=== PATIENT | male | born 1980 ===

== ENCOUNTER 2017-05-11 12:20 | Inpatient (IN) | payer OTHER ==
[2017-05-11] MEDS ORDERED: HYDROmorphone 0.5 mg/0.5 ml ISec IVP STA (13:13)
--- NOTE | 2017-05-11 13:16 | ED PDOC ---
HPI: Back Time Seen by Provider: 05/11/17 12:40 Chief Complaint (Nursing): Back Pain Chief Complaint (Provider): Back pain History Per: Patient History/Exam Limitations: no limitations Onset/Duration Of Symptoms: Persistent, Other (4 months) Current Symptoms Are (Timing): Still Present Quality Of Discomfort: Sharp Description Of Injury (Context): Fall from 2 stories Severity: Severe Associated Symptoms: None Exacerbating Factor(s): Turning, Movement Additional Complaint(s): Pt presents with low back pain X 4 months s/p fall from 2 stories, evaluated previously and diagnosed with disc herniation. Denies new trauma, paresthesias , weakness. Taking Advil and Percocet at home without relief. Past Medical History Reviewed: Nursing Documentation, Vital Signs Vital Signs: Last Vital Signs Temp 98 F 05/11/17 12:41 Pulse 74 05/11/17 12:41 Resp 20 05/11/17 12:41 BP 130/70 05/11/17 12:41 Pulse Ox 98 05/11/17 12:41 - Medical History PMH: No Chronic Diseases - Surgical History Other surgeries: R knee surgery - Family History Family History: States: No Known Family Hx - Social History Current smoker - smoking cessation education provided: No Alcohol: None - Allergies Allergies/Adverse Reactions: Allergies Allergy/AdvReac Type Severity Reaction Status Date / Time No Known Allergies Allergy Verified 05/11/17 12:44 Review of Systems Constitutional: Negative for: Fever, Chills Cardiovascular: Negative for: Chest Pain Gastrointestinal: Negative for: Abdominal Pain Genitourinary Male: Negative for: Dysuria, Incontinence Musculoskeletal: Positive for: Back Pain. Negative for: Leg Pain Skin: Negative for: Rash, Lesions Neurological: Negative for: Weakness, Numbness Physical Exam - Reviewed Nursing Documentation Reviewed: Yes Vital Signs Reviewed: Yes - Physical Exam Appears: Positive for: Uncomfortable Head Exam: Positive for: ATRAUMATIC, NORMAL INSPECTION Skin: Positive for: Normal Color, Warm, Dry Eye Exam: Positive for: Normal appearance, EOMI, PERRL Cardiovascular/Chest: Positive for: Regular Rate, Rhythm Respiratory: Positive for: Normal Breath Sounds Gastrointestinal/Abdominal: Positive for: Normal Exam, Bowel Sounds, Soft. Negative for: Tenderness Back: Positive for: Vertebral Tenderness (Lumbar), Decreased ROM. Negative for : L CVA Tenderness, R CVA Tenderness, Muscle Spasm Extremity: Positive for: Normal ROM Neurologic/Psych: Positive for: Alert, Oriented. Negative for: Motor/Sensory Deficits - ECG Interpretation Of ECG: EKG #1: Sinus cosmo @ 53, ST elevation V2-V5, 13:[address] Seay, pt without CP/SOB, comfortably appearing, no PMHx, no family history of early [place], states nothing to do. EKG #2: Sinus cosmo @ 55, J point elevation. O2 Sat by Pulse Oximetry: 98 Medical Decision Making Medical Decision Making: Time: 13:11 Initial Plan: - Type and Screen - EKG - CMP - CBC - Partial - Prothrombin Time - Chest X-Ray - Dilaudid 0.5 mg IVP - Urinalysis Disposition - Clinical Impression Clinical Impression: Intractable low back pain - Patient ED Disposition Is Patient to be Admitted: Yes - Disposition Disposition Time: 13:17 Condition: STABLE Forms: [employer] (Hungarian) - Pt Status Changed To: Hospital Disposition Of: Inpatient - Admit Certification Admit to Inpatient:: After my assessment, the patient will require hospitalization for at least two midnights. This is because of the severity of symptoms shown, intensity of services needed, and/or the medical risk in this patient being treated as an outpatient. - POA Present On Arrival: Falls Or Trauma
[2017-05-11] MEDS ORDERED: HYDROmorphone 0.5 mg/0.5 ml ISec ONE (13:30)
[2017-05-11 13:52] LABS: BASO % 0.6 % (0.0-2.0); EOS # 0.1 K/uL (0.0-0.7); MEAN CELL VOLUME 88.5 fl (80.0-94.0); MEAN CORPUSCULAR HEMOGLOBIN 28.7 pg (27.0-31.0); MEAN CORPUSCULAR HGB CONC 32.4 g/dL (33.0-37.0); MEAN PLATELET VOLUME 9.4 fl (7.2-11.7); MONO # 0.8 K/uL (0.0-0.8); MONO % 10.6 % (0.0-10.0); NEUT # 3.5 K/uL (1.8-7.0); NEUT % 46.8 % (50.0-75.0); WHITE BLOOD COUNT 7.6 K/uL (4.8-10.8)
--- NOTE | 2017-05-11 14:03 | RAD ---
HISTORY: Medical clearance COMPARISON: No prior. TECHNIQUE: Chest PA and lateral FINDINGS: LUNGS: No active pulmonary disease. PLEURA: No significant pleural effusion identified. No pneumothorax apparent. CARDIOVASCULAR: Normal. OSSEOUS STRUCTURES: No significant abnormalities. VISUALIZED UPPER ABDOMEN: Normal. OTHER FINDINGS: None. IMPRESSION: No active disease.
[2017-05-11 14:06] LABS: ALB/GLOB RATIO 1.4 (1.0-2.1); ALKALINE PHOSPHATASE 84 U/L (38-126); ALT/SGPT 52 U/L (21-72); AST/SGOT 45 U/L (17-59); BILIRUBIN,TOTAL 0.5 mg/dl (0.2-1.3); BLOOD UREA NITROGEN 19 mg/dl (9-20); CALCIUM 8.9 mg/dL (8.4-10.2); CARBON DIOXIDE 28 mmol/L (22-30); CHLORIDE 105 mmol/L (98-107); GFR AFRICAN-AMERICAN > 60; GLUCOSE,RANDOM 93 mg/dL (75-110); POTASSIUM 4.1 MMOL/L (3.6-5.0); SODIUM 141 mmol/l (132-148); TOTAL PROTEIN 7.2 G/DL (6.3-8.2)
[2017-05-11 14:14] LABS: PARTIAL THROMBOPLASTIN TIME 31.6 Seconds (25.6-37.1)
[2017-05-11 15:16] LABS: RBC URINE 2 /hpf (0-3); URINE BILIRUBIN NEGATIVE (NEGATIVE); URINE BLOOD NEGATIVE (NEGATIVE); URINE COLOR YELLOW (YELLOW); URINE GLUCOSE (UA) NEG (Normal); URINE KETONE NEGATIVE (NEGATIVE); URINE LEUKOCYTE ESTERASE NEG Leu/uL (Negative); URINE PROTEIN NEGATIVE (NEGATIVE); URINE UROBILINOGEN 0.2-1.0 mg/dL (0.2-1.0); WBC URINE 2 /hpf (0-5)
[2017-05-12] MEDS ORDERED: Dextrose 5%/Lactated Ringer's 1,000 ML IV SCH (06:00)
[2017-05-12] MEDS ORDERED: Propofol 10 mg/ml Inj (20 ML) ONE (08:33)
[2017-05-12] MEDS ORDERED: Midazolam 2 MG/2 ML VIAL ONE (08:34)
[2017-05-12] MEDS ORDERED: Lidocaine 4% (Laryng-O-Jet) Kit MM ONE (08:34)
[2017-05-12] MEDS ORDERED: Rocuronium 10 mg/ml (5 ml) ONE (08:34)
--- NOTE | 2017-05-12 08:51 | CP.PCM.HP ---
History of Present Illness - History of Present Illness History of Present Illness: This is a 37 y/o male with no significant medical hx was admitted for intractable lower back pain which started in December after a fall at work. Claims that he fell about 1 1/2 floor and since then had intractable back pain. Conservative measures were started but to no avail. His pain persisted despite pain medications and phys therapy. MRI showed herniated discs lumbar area L5S1 Present on Admission - Present on Admission Any Indicators Present on Admission: No History of DVT/PE: No History of Uncontrolled Diabetes: No Urinary Catheter: No Decubitus Ulcer Present: No Past Patient History - Past Medical History & Family History Past Medical History?: No - Past Social History Smoking Status: Never Smoked - CARDIAC Hx Cardiac Disorders: No - PULMONARY Hx Respiratory Disorders: No - NEUROLOGICAL Hx Neurological Disorder: No - HEENT Hx HEENT Problems: No - RENAL Hx Chronic Kidney Disease: No - ENDOCRINE/METABOLIC Hx Endocrine Disorders: No - HEMATOLOGICAL/ONCOLOGICAL Hx Blood Disorders: No Hx AIDS: No Hx Human Immunodeficiency Virus (HIV): No - INTEGUMENTARY Hx Dermatological Problems: No - MUSCULOSKELETAL/RHEUMATOLOGICAL Hx Musculoskeletal Disorders: No Hx Falls: No - GASTROINTESTINAL Hx Gastrointestinal Disorders: No - GENITOURINARY/GYNECOLOGICAL Hx Genitourinary Disorders: No - PSYCHIATRIC Hx Psychophysiologic Disorder: No Hx Substance Use: No - SURGICAL HISTORY Hx Surgeries: Yes Other/Comment: right knee surgery - ANESTHESIA Hx Anesthesia: Yes Hx Anesthesia Reactions: No Hx Malignant Hyperthermia: No Has any member of the family had a problem w/ anesthesia?: No Meds Allergies/Adverse Reactions: Allergies Allergy/AdvReac Type Severity Reaction Status Date / Time No Known Allergies Allergy Verified 05/11/17 12:44 Physical Exam - Head Exam Head Exam: NORMAL INSPECTION - Eye Exam Eye Exam: Normal appearance - ENT Exam ENT Exam: Mucous Membranes Moist - Respiratory Exam Respiratory Exam: Clear to Auscultation Bilateral - Cardiovascular Exam Cardiovascular Exam: REGULAR RHYTHM - Neurological Exam Neurological exam: CN II-XII Intact, Oriented x3 - Psychiatric Exam Psychiatric exam: Normal Mood Results - Vital Signs Recent Vital Signs: Last Vital Signs Temp 97.8 F 05/12/17 08:08 Pulse 52 L 05/12/17 08:08 Resp 20 05/12/17 08:08 BP 105/56 L 05/12/17 08:08 Pulse Ox 97 05/12/17 08:08 - Labs Result Diagrams: 05/11/17 13:45 05/11/17 13:45 Labs: Laboratory Results - last 24 hr 05/11/17 05/11/17 05/11/17 13:45 13:45 13:45 WBC 7.6 RBC 4.97 Hgb 14.3 Hct 44.0 MCV 88.5 MCH 28.7 MCHC 32.4 L RDW 14.0 Plt Count 142 MPV 9.4 Neut % (Auto) 46.8 L Lymph % (Auto) 40.0 [place] % (Auto) 10.6 H Eos % (Auto) 2.0 Baso % (Auto) 0.6 Neut # 3.5 Lymph # 3.0 [place] # 0.8 Eos # 0.1 Baso # 0.0 PT 11.6 INR 1.0 APTT 31.6 Sodium 141 Potassium 4.1 Chloride 105 Carbon Dioxide 28 Anion Gap 12 BUN 19 Creatinine 1.0 Est GFR ( Amer) > 60 Est GFR (Non-Af Amer) > 60 Random Glucose 93 Calcium 8.9 Total Bilirubin 0.5 AST 45 ALT 52 Alkaline Phosphatase 84 Total Protein 7.2 Albumin 4.2 Globulin 2.9 Albumin/Globulin Ratio 1.4 Urine Color Urine Clarity Urine pH Ur Specific [place] Urine Protein Urine Glucose (UA) Urine Ketones Urine Blood Urine Nitrate Urine Bilirubin Urine Urobilinogen Ur Leukocyte Esterase Urine RBC (Auto) Urine Microscopic WBC Blood Type Blood Type Confirm Antibody Screen BBK History Checked 05/11/17 05/11/17 05/11/17 13:45 15:00 15:05 WBC RBC Hgb Hct MCV MCH MCHC RDW Plt Count MPV Neut % (Auto) Lymph % (Auto) [place] % (Auto) Eos % (Auto) Baso % (Auto) Neut # Lymph # [place] # Eos # Baso # PT INR APTT Sodium Potassium Chloride Carbon Dioxide Anion Gap BUN Creatinine Est GFR ( Amer) Est GFR (Non-Af Amer) Random Glucose Calcium Total Bilirubin AST ALT Alkaline Phosphatase Total Protein Albumin Globulin Albumin/Globulin Ratio Urine Color Yellow Urine Clarity Clear Urine pH 6.0 Ur Specific [place] 1.019 Urine Protein Negative Urine Glucose (UA) Neg Urine Ketones Negative Urine Blood Negative Urine Nitrate Negative Urine Bilirubin Negative Urine Urobilinogen 0.2-1.0 Ur Leukocyte Esterase Neg Urine RBC (Auto) 2 Urine Microscopic WBC 2 Blood Type O POSITIVE Blood Type Confirm O POSITIVE Antibody Screen Negative BBK History Checked No verified bt Assessment & Plan (1) Herniated lumbar disc without myelopathy Status: Acute (2) Intractable low back pain Status: Acute - Assessment and Plan (Free Text) Plan: KEEP npo PAIN MEDS iv FLUIDS LABS REVIEWED MEDICALLY STABLE FOR SURGERY.
[2017-05-12] MEDS ORDERED: ceFAZolin IV 1 gm in Dextrose 2 GM/100 ML BAG IVPB ONE (08:55)
[2017-05-12] MEDS ORDERED: Lidocaine 2% w Epi 1:100,000 Inj IJ ONE (08:55)
[2017-05-12] MEDS ORDERED: Bupivacaine HCl 0.5% PF (30 ml) Inj ONE (08:55)
[2017-05-12] MEDS ORDERED: Thrombin Topical 5,000 IU Spray Kit ONE (08:56)
[2017-05-12] MEDS ORDERED: Absorbable Gelatin Sponge Size 100 ONE (08:56)
[2017-05-12] MEDS ORDERED: Neostigmine Methylsulfate 3mg/3ml Syringe IV ONE (10:44)
[2017-05-12] MEDS ORDERED: Lactated Ringer's 1,000 ML IV ONE (10:55)
[2017-05-12] MEDS ORDERED: Lactated Ringer's 500 ML IV ONE (10:57)
[2017-05-12] MEDS ORDERED: Dexamethasone 4 mg/1 ml IVP PRN (11:15)
[2017-05-12] MEDS: HYDROmorphone 0.5 mg/0.5 ml ISec IVP PRN ×2 (11:47→12:07)
--- NOTE | 2017-05-12 12:20 | CP.PCM.CON ---
History of Present Illness - History of Present Illness History of Present Illness: Dr. Allison asked to see this 37 yo male admitted with intractable LBP radiating LLE with paresthesias and weakness,increasing difficulty ambulating,ongoing symptoms since W[place],no relief with conservative management and medication,unable to perform ADL's,images reviewed showing Lumbar Spondylosis,HNP L5-S1 with severe canal and foraminal stenosis,discussed surgical and non surgical options, due to worsening symptoms pt agree's to have a decompressive laminectomy,denies pelvic paresthesias ,B/B incontinance. Review of Systems - Review of Systems Systems not reviewed;Unavailable: Acuity of Condition - Musculoskeletal Musculoskeletal: Muscle Weakness, Radiating Pain into Limb, Tingling - Neurological Neurological: As Per HPI Past Patient History - Infectious Disease Hx of Infectious Diseases: None - Tetanus Immunizations Tetanus Immunization: Unknown - Past Medical History & Family History Past Medical History?: No - Past Social History Smoking Status: Never Smoked Chewing Tobacco Use: No Cigar Use: No - CARDIAC Hx Cardiac Disorders: No - PULMONARY Hx Respiratory Disorders: No - NEUROLOGICAL Hx Neurological Disorder: No - HEENT Hx HEENT Problems: No - RENAL Hx Chronic Kidney Disease: No - ENDOCRINE/METABOLIC Hx Endocrine Disorders: No - HEMATOLOGICAL/ONCOLOGICAL Hx Blood Disorders: No Hx AIDS: No Hx Human Immunodeficiency Virus (HIV): No - INTEGUMENTARY Hx Dermatological Problems: No - MUSCULOSKELETAL/RHEUMATOLOGICAL Hx Musculoskeletal Disorders: No Hx Falls: No - GASTROINTESTINAL Hx Gastrointestinal Disorders: No - GENITOURINARY/GYNECOLOGICAL Hx Genitourinary Disorders: No - PSYCHIATRIC Hx Psychophysiologic Disorder: No Hx Substance Use: No - SURGICAL HISTORY Hx Surgeries: Yes Other/Comment: right knee surgery - ANESTHESIA Hx Anesthesia: Yes Hx Anesthesia Reactions: No Hx Malignant Hyperthermia: No Has any member of the family had a problem w/ anesthesia?: No Meds Allergies/Adverse Reactions: Allergies Allergy/AdvReac Type Severity Reaction Status Date / Time No Known Allergies Allergy Verified 05/11/17 12:44 - Medications Medications: Current Medications Dexamethasone (Decadron Inj) 4 mg IVP ONCE PRN PRN Reason: Nausea/Vomiting Stop: 05/12/17 13:16 Hydromorphone HCl (Dilaudid) 0.5 mg IVP Q5M PRN PRN Reason: Pain, severe (8-10) Stop: 05/12/17 13:16 Last Admin: 05/12/17 12:07 Dose: 0.5 mg Dextrose/Lactated Ringer's (Dextrose 5%/Lactated Ringer's) 1,000 mls @ 80 mls/ hr IV .[id number] TRACIE Stop: 05/13/17 17:35 Last Admin: 05/12/17 06:14 Dose: 80 mls/hr Ketorolac Tromethamine (Toradol) 30 mg IVP ONCE PRN PRN Reason: Pain, moderate (4-7) Stop: 05/12/17 13:16 Metoclopramide HCl (Reglan) 10 mg IVP ONCE PRN PRN Reason: Nausea/Vomiting Stop: 05/12/17 13:16 Physical Exam - Constitutional Appears: Well, Non-toxic, No Acute Distress - Head Exam Head Exam: ATRAUMATIC, NORMAL INSPECTION, NORMOCEPHALIC - Eye Exam Eye Exam: EOMI, Normal appearance, PERRL Pupil Exam: NORMAL ACCOMODATION - ENT Exam ENT Exam: Mucous Membranes Moist - Neck Exam Neck exam: Positive for: Normal Inspection - Respiratory Exam Respiratory Exam: Clear to Auscultation Bilateral - Cardiovascular Exam Cardiovascular Exam: REGULAR RHYTHM, +S1, +S2 - GI/Abdominal Exam GI & Abdominal Exam: Normal Bowel Sounds, Soft - Rectal Exam Rectal Exam: Deferred - Extremities Exam Extremities exam: Positive for: pedal pulses present - Back Exam Back exam: paraspinal tenderness, vertebral tenderness - Neurological Exam Neurological exam: Alert, Oriented x3 Additional comments: VU x 4 antigravity with LLE weakness 4/5 and paresthesias,Left SLR 40 degree's, + 2 DTR's,neg babinski - Psychiatric Exam Psychiatric exam: Normal Affect, Normal Mood - Skin Skin Exam: Dry, Intact, Normal Color Results - Vital Signs Recent Vital Signs: Last Vital Signs Temp 96.8 F L 05/12/17 12:00 Pulse 54 L 05/12/17 12:00 Resp 18 05/12/17 12:00 BP 115/64 05/12/17 12:00 Pulse Ox 100 05/12/17 12:00 - Labs Result Diagrams: 05/11/17 13:45 05/11/17 13:45 Labs: Laboratory Results - last 24 hr 05/11/17 05/11/17 05/11/17 13:45 13:45 13:45 WBC 7.6 RBC 4.97 Hgb 14.3 Hct 44.0 MCV 88.5 MCH 28.7 MCHC 32.4 L RDW 14.0 Plt Count 142 MPV 9.4 Neut % (Auto) 46.8 L Lymph % (Auto) 40.0 [place] % (Auto) 10.6 H Eos % (Auto) 2.0 Baso % (Auto) 0.6 Neut # 3.5 Lymph # 3.0 [place] # 0.8 Eos # 0.1 Baso # 0.0 PT 11.6 INR 1.0 APTT 31.6 Sodium 141 Potassium 4.1 Chloride 105 Carbon Dioxide 28 Anion Gap 12 BUN 19 Creatinine 1.0 Est GFR ( Amer) > 60 Est GFR (Non-Af Amer) > 60 Random Glucose 93 Calcium 8.9 Total Bilirubin 0.5 AST 45 ALT 52 Alkaline Phosphatase 84 Total Protein 7.2 Albumin 4.2 Globulin 2.9 Albumin/Globulin Ratio 1.4 Urine Color Urine Clarity Urine pH Ur Specific [place] Urine Protein Urine Glucose (UA) Urine Ketones Urine Blood Urine Nitrate Urine Bilirubin Urine Urobilinogen Ur Leukocyte Esterase Urine RBC (Auto) Urine Microscopic WBC Blood Type Blood Type Confirm Antibody Screen BBK History Checked 05/11/17 05/11/17 05/11/17 13:45 15:00 15:05 WBC RBC Hgb Hct MCV MCH MCHC RDW Plt Count MPV Neut % (Auto) Lymph % (Auto) [place] % (Auto) Eos % (Auto) Baso % (Auto) Neut # Lymph # [place] # Eos # Baso # PT INR APTT Sodium Potassium Chloride Carbon Dioxide Anion Gap BUN Creatinine Est GFR ( Amer) Est GFR (Non-Af Amer) Random Glucose Calcium Total Bilirubin AST ALT Alkaline Phosphatase Total Protein Albumin Globulin Albumin/Globulin Ratio Urine Color Yellow Urine Clarity Clear Urine pH 6.0 Ur Specific [place] 1.019 Urine Protein Negative Urine Glucose (UA) Neg Urine Ketones Negative Urine Blood Negative Urine Nitrate Negative Urine Bilirubin Negative Urine Urobilinogen 0.2-1.0 Ur Leukocyte Esterase Neg Urine RBC (Auto) 2 Urine Microscopic WBC 2 Blood Type O POSITIVE Blood Type Confirm O POSITIVE Antibody Screen Negative BBK History Checked No verified bt Assessment & Plan - Assessment and Plan (Free Text) Assessment: 37 yo male with Left L5-S1 HNP,Lumbar Spondylosis and LLE radiculapathy Plan: due to worsenig symptoms,increasing inability to perform ADL's,failed conservative management,pt agree's to have Left Decompressive Laminectomy L5-S1, risks and benefits of surgery d/w pt,expressed understanding and wishes to proceed.
[2017-05-12] MEDS ORDERED: Oxycodone/Acetaminophen 5/325 mg Tab PO PRN (12:27)
[2017-05-12] MEDS ORDERED: Lactated Ringer's 1,000 ML IV SCH (12:30)
--- NOTE | 2017-05-12 12:30 | RAD ---
PROCEDURE: Intraoperative Fluoroscopy. HISTORY: LUMBAR LAMINECTOMY FINDINGS: Fluoroscopic assistance was provided for lumbar laminectomy. Please seconds of fluoro time was utilized with a cumulative dose of 0.74 mGy.
[2017-05-12] MEDS ORDERED: Influenza Vaccine 18yr & older 0.5 ML/45 MCG SYR IM ONE (16:00)
--- NOTE | 2017-05-12 16:10 | CP.PCM.PN ---
Subjective - Date & Time of Evaluation Date of Evaluation: 05/12/17 Time of Evaluation: 16:08 - Subjective Subjective: POD# 0: s/p L5-S1 decompressive laminectomy S:Patient seen and evaluated postoperatively. Pain is well controlled, has headache only. Would like to avoid percocet/morphine. He has rash on anterior left thigh, on lateral aspect, states it is secondary to allergy to metal. He puts his keys in his pocket and then has rash. Uses cream from [place] 'trident' . Unsure what generic medication is. O:Patient is lying comfortably in bed, no acute distress. Breathing is unlabored , normal breathing pattern. Abdomen is soft and nondistended, nontender. Extermities Good muscular tone, Lateral left leg anterior thigh: 2x3cm area of erythema with scaling, excoration. A/P: 37 year old male POD# 0: s/p L5-S1 decompressive laminectomy -pain control: tylenol/toradol -regular diet -PT evaluation -scds for now, lovenox in am Objective - Vital Signs/Intake and Output Vital Signs (last 24 hours): Temp Pulse Resp BP Pulse Ox 98.1 F 98 H 20 114/57 L 98 05/12/17 14:42 05/12/17 14:42 05/12/17 14:42 05/12/17 14:42 05/12/17 14:42 Intake and Output: 05/12/17 05/12/17 06:59 18:59 Intake Total 1820 Balance 1820 - Medications Medications: Current Medications Docusate Sodium (Colace) 100 mg PO BID TRACIE Dextrose/Lactated Ringer's (Dextrose 5%/Lactated Ringer's) 1,000 mls @ 80 mls/ hr IV .[id number] [facility] Stop: 05/13/17 17:35 Last Admin: 05/12/17 06:14 Dose: 80 mls/hr Lactated Ringer's (Lactated Ringer's) 1,000 mls @ 75 mls/hr IV .[id number] [facility] Stop: 05/13/17 10:00 Cefazolin Sodium/Dextrose (Ancef Iv 1 Gm Duplex) 1 gm in 50 mls @ 50 mls/hr IVPB Q8 TRACIE PRN Reason: Protocol Morphine Sulfate (Morphine) 2 mg IVP Q4 PRN PRN Reason: Pain, severe (8-10) Ondansetron HCl (Zofran Inj) 4 mg IVP Q6 PRN PRN Reason: Nausea/Vomiting Oxycodone/Acetaminophen (Percocet 5/325 Mg Tab) 2 tab PO Q4 PRN PRN Reason: Pain, moderate (4-7) Stop: 05/15/17 12:28 - Labs Labs: 05/11/17 13:45 05/11/17 13:45 PT 11.6 Seconds (9.8-13.1) 05/11/17 13:45 INR 1.0 (0.9-1.2) 05/11/17 13:45 APTT 31.6 Seconds (25.6-37.1) 05/11/17 13:45
[2017-05-12] MEDS: ceFAZolin IV 1 gm in Dextrose 1 GM/50 ML BAG IVPB SCH (17:04)
--- NOTE | 2017-05-12 23:22 | OP ---
PROCEDURE DATE: 05/12/2017 PREOPERATIVE DIAGNOSIS: Herniated lumbar disc at L5-S1. POSTOPERATIVE DIAGNOSIS: Herniated lumbar disc at L5-S1. PROCEDURE: Left L5-S1 hemilaminotomy, medial facetectomy, decompression. Microscope has been used, fluoroscopy has been used. SURGEON: Kieran Allison MD INJECTOR ASSEMBLER: Zuri Michel, physician nurses medical assistants phlebotomists. Zuri Michel stayed throughout the case from the beginning to the end and helped me perform the surgery. DESCRIPTION OF PROCEDURE: The patient was brought to the operating room, anesthetized with general endotracheal anesthesia, placed in a prone position on the Jacky table. Care was taken to protect all the pressure points. Back of the lumbar area thoroughly prepped and draped in same sterile manner after marking of the skin incision for an L5-S1 laminectomy . After prepping and draping the area, the skin has been incised. Bleeding skins had been controlled with bipolar gear repairer. By using a Bovie gear repairer, paraspinal muscles have been detached, attachments of spinous process and lamina of L5-S1 on the left side. A Sharon retractor has been applied to alter the facet joint of L5-S1. Fluoroscopy has been used in order to confirm the level. Under microscopic magnification, the lamina of L5-S1 and medial part of the L5-S1 have been drilled. Drilling was continued until the top and bottom of the ligamentum flavum was seen. Drilling was also continued on the medial part of the facets until the turn of ligamentum flavum has been seen. Once this has been done, thinned out the lamina; medial part of the facets and ligamentum flavum has been removed. There was a herniated disc noted, it was not extruded, hence a foraminotomy was performed to decompress this area. The disc was found to be hard in nature. After that, hemostasis was best achieved. Fascia across the interspinous ligaments, spinous process with 1-Vicryl, subcutaneous with 3-0 Vicryl. Skin has been closed with intradermal *------* stitches. The patient tolerated the procedure. After procedure, mobilized to the recovery room in stabilized condition. Kieran Allison MD
[2017-05-13] MEDS: ceFAZolin IV 1 gm in Dextrose 1 GM/50 ML BAG IVPB SCH ×2 (00:44→08:34)
[2017-05-13 06:37] LABS: BASO % 0.5 % (0.0-2.0); EOS # 0.1 K/uL (0.0-0.7); EOS % 1.3 % (0.0-4.0); HEMATOCRIT 43.3 % (35.0-51.0); LYMPH # 1.9 K/uL (1.0-4.3); LYMPH % 21.5 % (20.0-40.0); MEAN CELL VOLUME 88.7 fl (80.0-94.0); MEAN CORPUSCULAR HEMOGLOBIN 28.8 pg (27.0-31.0); MEAN CORPUSCULAR HGB CONC 32.5 g/dL (33.0-37.0); MEAN PLATELET VOLUME 9.8 fl (7.2-11.7); MONO % 11.1 % (0.0-10.0); NEUT # 5.8 K/uL (1.8-7.0); NEUT % 65.6 % (50.0-75.0); NRBC % 0.1 % (0.0-0.0); RED CELL DISTRIBUTION WIDTH 13.7 % (11.5-14.5); WHITE BLOOD COUNT 8.8 K/uL (4.8-10.8)
[2017-05-13 07:54] VITALS: BP 124/70; RESP 20; TEMP 99.1; O2SAT 98
[2017-05-13 09:54] VITALS: PULSE 83
--- NOTE | 2017-05-13 12:12 | CARD ---
APPROVED REPORT EKG Measurement Heart [id number] <Conclusion> Sinus bradycardia ST elevation, consider anterolateral injury or acute infarct vs early repolarizatioon
--- NOTE | 2017-05-13 17:31 | CP.PCM.DIS ---
Provider - Provider Date of Admission: 05/11/17 13:13 Attending physician: Lorenzo Avendaño MD Consults: Neurosurgery Time Spent in preparation of Discharge (in minutes): 35 Diagnosis - Discharge Diagnosis (1) Herniated lumbar disc without myelopathy Status: Chronic (2) Intractable low back pain Status: Chronic Hospital Course - Lab Results Lab Results: Most Recent Lab Values WBC 8.8 K/uL (4.8-10.8) 05/13/17 05:25 RBC 4.88 Mil/uL (4.40-5.90) 05/13/17 05:25 Hgb 14.1 g/dL (12.0-18.0) 05/13/17 05:25 Hct 43.3 % (35.0-51.0) 05/13/17 05:25 MCV 88.7 fl (80.0-94.0) 05/13/17 05:25 MCH 28.8 pg (27.0-31.0) 05/13/17 05:25 MCHC 32.5 g/dL (33.0-37.0) L 05/13/17 05:25 RDW 13.7 % (11.5-14.5) 05/13/17 05:25 Plt Count 129 K/uL (130-400) L 05/13/17 05:25 MPV 9.8 fl (7.2-11.7) 05/13/17 05:25 Neut % (Auto) 65.6 % (50.0-75.0) 05/13/17 05:25 Lymph % (Auto) 21.5 % (20.0-40.0) 05/13/17 05:25 [place] % (Auto) 11.1 % (0.0-10.0) H 05/13/17 05:25 Eos % (Auto) 1.3 % (0.0-4.0) 05/13/17 05:25 Baso % (Auto) 0.5 % (0.0-2.0) 05/13/17 05:25 Neut # 5.8 K/uL (1.8-7.0) 05/13/17 05:25 Lymph # 1.9 K/uL (1.0-4.3) 05/13/17 05:25 [place] # 1.0 K/uL (0.0-0.8) H 05/13/17 05:25 Eos # 0.1 K/uL (0.0-0.7) 05/13/17 05:25 Baso # 0.0 K/uL (0.0-0.2) 05/13/17 05:25 PT 11.6 Seconds (9.8-13.1) 05/11/17 13:45 INR 1.0 (0.9-1.2) 05/11/17 13:45 APTT 31.6 Seconds (25.6-37.1) 05/11/17 13:45 Sodium 141 mmol/l (132-148) 05/11/17 13:45 Potassium 4.1 MMOL/L (3.6-5.0) 05/11/17 13:45 Chloride 105 mmol/L (98-107) 05/11/17 13:45 Carbon Dioxide 28 mmol/L (22-30) 05/11/17 13:45 Anion Gap 12 (10-20) 05/11/17 13:45 BUN 19 mg/dl (9-20) 05/11/17 13:45 Creatinine 1.0 mg/dL (0.8-1.5) 05/11/17 13:45 Est GFR ( Amer) > 60 05/11/17 13:45 Est GFR (Non-Af Amer) > 60 05/11/17 13:45 Random Glucose 93 mg/dL (75-110) 05/11/17 13:45 Calcium 8.9 mg/dL (8.4-10.2) 05/11/17 13:45 Total Bilirubin 0.5 mg/dl (0.2-1.3) 05/11/17 13:45 AST 45 U/L (17-59) 05/11/17 13:45 ALT 52 U/L (21-72) 05/11/17 13:45 Alkaline Phosphatase 84 U/L (38-126) 05/11/17 13:45 Total Protein 7.2 G/DL (6.3-8.2) 05/11/17 13:45 Albumin 4.2 g/dL (3.5-5.0) 05/11/17 13:45 Globulin 2.9 gm/dL (2.2-3.9) 05/11/17 13:45 Albumin/Globulin Ratio 1.4 (1.0-2.1) 05/11/17 13:45 Urine Color Yellow (YELLOW) 05/11/17 15:05 Urine Clarity Clear (Clear) 05/11/17 15:05 Urine pH 6.0 (5.0-8.0) 05/11/17 15:05 Ur Specific [place] 1.019 (1.003-1.030) 05/11/17 15:05 Urine Protein Negative mg/dL (NEGATIVE) 05/11/17 15:05 Urine Glucose (UA) Neg mg/dL (Normal) 05/11/17 15:05 Urine Ketones Negative mg/dL (NEGATIVE) 05/11/17 15:05 Urine Blood Negative (NEGATIVE) 05/11/17 15:05 Urine Nitrate Negative (NEGATIVE) 05/11/17 15:05 Urine Bilirubin Negative (NEGATIVE) 05/11/17 15:05 Urine Urobilinogen 0.2-1.0 mg/dL (0.2-1.0) 05/11/17 15:05 Ur Leukocyte Esterase Neg [place]/uL (Negative) 05/11/17 15:05 Urine RBC (Auto) 2 /hpf (0-3) 05/11/17 15:05 Urine Microscopic WBC 2 /hpf (0-5) 05/11/17 15:05 Blood Type O POSITIVE 05/11/17 13:45 Blood Type Confirm O POSITIVE 05/11/17 15:00 Antibody Screen Negative 05/11/17 13:45 BBK History Checked No verified bt 05/11/17 13:45 - Hospital Course Hospital Course: 37 year old male admitted for intractable back pain, s/p L5-S1 decompressive laminectomy. Patients pain is well controlled with tylenol. He is ambulating well. No other complaints. - Date & Time of H&P Date of H&P: 05/12/17 Time of H&P: 08:48 Discharge Exam - Head Exam Head Exam: ATRAUMATIC, NORMAL INSPECTION, NORMOCEPHALIC - Eye Exam Eye Exam: EOMI, Normal appearance, PERRL - Respiratory Exam Respiratory Exam: NORMAL BREATHING PATTERN - Cardiovascular Exam Cardiovascular Exam: REGULAR RHYTHM, +S1, +S2 - GI/Abdominal Exam GI & Abdominal Exam: Normal Bowel Sounds, Soft. absent: Diminished Bowel Sounds , Distended, Guarding, Tenderness - Rectal Exam Rectal Exam: Deferred - Extremities Exam Extremities exam: normal inspection - Back Exam Additional comments: dressing covering incision, no drainage, clean dry intact - Neurological Exam Neurological exam: Alert, CN II-XII Intact, Normal Gait, Oriented x3 - Psychiatric Exam Psychiatric exam: Normal Affect, Normal Mood - Skin Skin Exam: Dry, Intact, Normal Color, Warm Discharge Plan - Discharge Medications Prescriptions: Ibuprofen [Motrin] 600 mg PO Q6 #30 tab - Follow Up Plan Condition: STABLE Disposition: HOME/ ROUTINE
== END 2017-05-13 13:32 | disposition home or self-care (01) | DRG 517 ==
LOC: H.ER 12:20 → H.ERHOLD 13:13 → H.PEDS 16:01 → H.MEDSURG1 05-12 14:34
PROVIDERS: ADMIT Family Medicine; ATTEND Family Medicine
PROC: 3E0234Z Introduction of Serum, Toxoid and Vaccine into Muscle, Percutaneous Approach (ICD-10-PCS; 2017-05-12)
PROC: 01NB0ZZ Release Lumbar Nerve, Open Approach (ICD-10-PCS; principal; 2017-05-12 10:30)
DX: M51.27 Other intervertebral disc displacement, lumbosacral region (principal); M47.26 Other spondylosis with radiculopathy, lumbar region; R20.2 Paresthesia of skin; T78.49XA Other allergy, initial encounter; R21 Rash and other nonspecific skin eruption; Z23 Encounter for immunization; X58.XXXA Exposure to other specified factors, initial encounter